=== PATIENT | female | born 1950 | race Caucasian/White ===

== ENCOUNTER 2016-11-24 14:11 | Emergency (ER) | payer MEDICARE, OTHER ==
--- NOTE | 2016-11-24 15:20 | ER Document Report ---
ED Syncope and Near Syncope - General Mode of Arrival: Medic Information source: Patient TRAVEL OUTSIDE OF THE U.[place]. IN LAST 30 DAYS: No - HPI Patient complains to provider of: Nearly fainting Context: Other - See above <SHAD KNIGHT - Last Filed: 11/24/16 16:01> <MANFRED BALLESTEROS - Last Filed: 11/24/16 22:31> - General Chief Complaint: Near Syncope Stated Complaint: POSSIBLE SYNCOPE Time Seen by Provider: 11/24/16 14:52 Notes: Patient is a 66 year old female who presents to the emergency department via EMS for near-syncope just prior to arrival. Patient states that she was with her working at a concession stand at a park when she went to the bathroom, vomited, had diarrhea, became hot, started seeing black and felt like she was going to pass out. Patient also complains of abdominal pain, nausea, and weakness. Patient denies chest pain, breathing difficulties, and trouble urinating. Patient reports she has not been sick recently, had any antibiotics, and that she only ate half a hot dog before the incident. (SHAD KNIGHT) - Related Data Allergies/Adverse Reactions: metoclopramide HCl [From Reglan] Allergy (Intermediate, Verified 08/04/16 08:09) nervousness, shaky Penicillins Allergy (Intermediate, Verified 08/04/16 08:09) rapid heartbeat acetaminophen [From Darvocet-N 100] Allergy (Mild, Verified 08/04/16 08:09) itching bacitracin [From Neosporin] Allergy (Mild, Verified 08/04/16 08:09) break out in little red bimps, itching bacitracin zinc [From Neosporin] Allergy (Mild, Verified 08/04/16 08:09) itching, break out wit little red bumps codeine [Codeine] Allergy (Mild, Verified 08/04/16 08:09) body jerking gramicidin D [From Neosporin] Allergy (Mild, Verified 08/04/16 08:09) itching neomycin sulfate [From Neosporin] Allergy (Mild, Verified 08/04/16 08:09) itching oxycodone HCl [From Percocet] Allergy (Mild, Verified 08/04/16 08:09) itching polymyxin B [From Neosporin] Allergy (Mild, Verified 08/04/16 08:09) itching polymyxin B sulfate [From Neosporin] Allergy (Mild, Verified 08/04/16 08:09) itching propoxyphene napsylate [From Darvocet-N 100] Allergy (Mild, Verified 08/04/16 08 :09) itching asprin Adverse Reaction (Intermediate, Uncoded 08/04/16 08:09) rapid pulse Past Medical History - General Information source: Patient - Social History Smoking Status: Unknown if Ever Smoked Family History: Reviewed & Not Pertinent - Past Medical History Cardiac Medical History: Reports: Hx Hypertension GI Medical History: Reports: Hx Gastroesophageal Reflux Disease, Hx Hiatal Hernia, Hx Ulcer Musculoskeltal Medical History: Reports Hx Arthritis Psychiatric Medical History: Reports: Hx Anxiety, Hx Depression Past Surgical History: Reports: Hx Cholecystectomy, Hx Hysterectomy, Hx Orthopedic Surgery, Hx Tubal Ligation - Immunizations Hx Diphtheria, Pertussis, Tetanus Vaccination: Yes <SHAD KNIGHT - Last Filed: 11/24/16 16:01> Review of Systems - Review of Systems Constitutional: See HPI, Weakness, Other - feeling hot EENT: See HPI, Blurred vision - seeing black Cardiovascular: Syncope - near. denies: Chest pain Respiratory: denies: Other - breathing difficulty Gastrointestinal: See HPI, Abdominal pain, Diarrhea, Nausea, Vomiting Genitourinary: denies: Other - Difficulty urinating Female Genitourinary: No symptoms reported Musculoskeletal: No symptoms reported Skin: No symptoms reported Hematologic/Lymphatic: No symptoms reported Neurological/Psychological: No symptoms reported -: Yes All other systems reviewed and negative <SHAD KNIGHT - Last Filed: 11/24/16 16:01> Physical Exam - Vital signs Interpretation: Normal - General General appearance: Alert In distress: None - HEENT Head: Normocephalic, Atraumatic Eyes: Normal Pupils: PERRL Nasal: Normal Mouth/Lips: Normal Mucous membranes: Dry Pharynx: Normal Neck: Normal - Respiratory Respiratory status: No respiratory distress Chest status: Nontender Breath sounds: Normal Chest palpation: Normal - Cardiovascular Rhythm: Regular Heart sounds: Normal auscultation Murmur: No - Abdominal Inspection: Normal Distension: No distension Bowel sounds: Normal Tenderness: Nontender Organomegaly: No organomegaly - Back Back: Normal, Nontender - Extremities General upper extremity: Normal inspection, Nontender, Normal color, Normal ROM , Normal temperature General lower extremity: Normal inspection, Nontender, Normal color, Normal ROM , Normal temperature, Normal weight bearing. No: Kenn's sign - Neurological Neuro grossly intact: Yes Cognition: Normal Orientation: AAOx4 [place] Coma Scale Eye Opening: Spontaneous [place] Coma Scale Verbal: Oriented [place] Coma Scale Motor: Obeys Commands [place] Coma Scale Total: 15 Speech: Normal Motor strength normal: LUE, RUE, LLE, RLE Sensory: Normal - Psychological Associated symptoms: Normal affect, Normal mood - Skin Skin Temperature: Warm Skin Moisture: Dry Skin Color: Normal <MANFRED BALLESTEROS - Last Filed: 11/24/16 22:31> - Vital signs Vitals: Temp Pulse Resp BP Pulse Ox 98.6 F 74 18 113/75 95 11/24/16 14:18 11/24/16 14:18 11/24/16 14:18 11/24/16 14:18 11/24/16 14:18 Course <SHAD KNIGHT - Last Filed: 11/24/16 16:01> - Laboratory Result Diagrams: 11/24/16 16:50 11/24/16 16:50 <MANFRED BALLESTEROS - Last Filed: 11/24/16 22:31> - Re-evaluation Re-evalutation: 11/24/16 Patient took a dose of lisinopril last night because she thought her blood pressure was high. Patient then went out in the hot sun all day and began developing diarrhea. Patient is improved after fluids and would like to go home. She is instructed to not take her blood pressure medications tonight or tomorrow morning. Patient is not orthostatic. Feels better. Blood work otherwise within normal limits. Stable for discharge. (MANFRED BALLESTEROS) - Vital Signs Vital signs: Temp Pulse Resp BP Pulse Ox 97.5 F 92 19 127/74 H 97 11/24/16 19:52 11/24/16 19:07 11/24/16 19:52 11/24/16 19:52 11/24/16 19:52 - Laboratory Laboratory results interpreted by me: 11/24/16 11/24/16 11/24/16 16:50 16:50 17:10 RDW 14.7 H Potassium 3.1 L Total Protein 5.8 L Albumin 3.1 L Stool for White Cells MANY H Discharge <SHAD KNIGHT - Last Filed: 11/24/16 16:01> <MANFRED BALLESTEROS - Last Filed: 11/24/16 22:31> - Discharge Clinical Impression: Near syncope, Hypokalemia Diarrhea Qualifiers: Diarrhea type: unspecified type Qualified Code(s): R19.7 - Diarrhea, unspecified Condition: Stable Disposition: HOME, SELF-CARE Instructions: Near Syncopal Episode ([facility]), Diarrhea, Nonspecific ([facility]), Orthostatic Hypotension ([facility]) Additional Instructions: Please do not take any blood pressure medication tonight or tomorrow morning. Please follow-up with her doctor on Saturday. Referrals: COLTON CERVANTES MD [Primary Care Provider] - 11/26/16 Scribe Attestation: 11/24/16 22:31 I personally performed the services described in the documentation, reviewed and edited the documentation which was dictated to the scribe in my presence, and it accurately records my words and actions. (MANFRED BALLESTEROS) Scribe Documentation - Scribe Written by Neo:: neo Nesbitt, 11/24/16, [id number] acting as scribe for :: Yvette <SHAD KNIGHT - Last Filed: 11/24/16 16:01>
[2016-11-24] MEDS ORDERED: NORMAL SALINE 1000 ML 1,000 ML IV ONE (15:42)
[2016-11-24 17:08] LABS: ABSOLUTE BASOPHILS # (AUTO) 0.1 10^3/uL (0.0-0.2); ABSOLUTE EOSINOPHILS # (AUTO) 0.1 10^3/uL (0.0-0.6); ABSOLUTE LYMPHOCYTES (AUTO) 1.6 10^3/uL (0.5-4.7); ABSOLUTE MONOCYTES (AUTO) 1.3 10^3/uL (0.1-1.4); ABSOLUTE NEUT (AUTO) 7.2 10^3/uL (1.7-8.2); BASOPHILS % (AUTO) 0.5 % (0-2); EOSINOPHILS % (AUTO) 0.5 % (0-6); HEMATOCRIT 36.8 % (36.0-47.0); HEMOGLOBIN 12.8 g/dL (12.0-15.5); HGB HCT DIFFERENCE 1.6; LYMPHOCYTES % (AUTO) 15.7 % (13-45); MEAN CORPUSCULAR HGB CONC 34.8 g/dL (32.0-36.0); MEAN CORPUSCULAR VOLUME 92 fl (80-97); MONOCYTES % (AUTO) 12.5 % (3-13); RED CELL DISTRIBUTION WIDTH 14.7 % (11.5-14.0); SEGMENTED NEUTROPHILS % (AUTO) 70.8 % (42-78); WHITE BLOOD COUNT 10.2 10^3/uL (4.0-10.5)
[2016-11-24 17:26] LABS: ALANINE AMINOTRANSFERASE 33 U/L (9-52); ALBUMIN 3.1 g/dL (3.5-5.0); ALKALINE PHOSPHATASE 78 U/L (38-126); ANION GAP 10 (5-19); ASPARTATE AMINO TRANSFERASE 26 U/L (14-36); BILIRUBIN,DIRECT 0.2 mg/dL (0.0-0.4); BILIRUBIN,TOTAL 0.7 mg/dL (0.2-1.3); BLOOD UREA NITROGEN 11 mg/dL (7-20); CALCIUM 9.4 mg/dL (8.4-10.2); CARBON DIOXIDE 24 mmol/L (22-30); CHLORIDE 106 mmol/L (98-107); CREATINE KINASE 35 U/L (30-135); CREATININE RESULT 0.73 mg/dL (0.52-1.25); GLUCOSE 103 mg/dL (75-110); POTASSIUM 3.1 mmol/L (3.6-5.0); SODIUM 139.8 mmol/L (137-145); TOTAL PROTEIN 5.8 g/dL (6.3-8.2)
[2016-11-24 17:39] LABS: CREATINE KINASE MB < 0.22 ng/mL (<4.55); TROPONIN I < 0.012 ng/mL
[2016-11-24 17:40] LABS: APPEARANCE,URINE CLEAR; BILIRUBIN,URINE NEGATIVE (NEGATIVE); GLUCOSE, URINE NEGATIVE (NEGATIVE); KETONES,URINE NEGATIVE (NEGATIVE); LEUKOCYTE ESTERASE,URINE NEGATIVE (NEGATIVE); NITRITE,URINE NEGATIVE (NEGATIVE); PROTEIN,URINE NEGATIVE (NEGATIVE); URINE SPECIFIC GRAVITY 1.006; UROBILINOGEN,URINE NEGATIVE mg/dL (<2.0)
[2016-11-24] MEDS ORDERED: POTASSI CL 20 MEQ/50 ML RIDER 50 ML IV SCH (17:58)
[2016-11-24] MEDS ORDERED: POTASSIUM CHLORIDE 10 MEQ TABLET.SA PO ONE (19:09)
[2016-11-24 20:02] VITALS: BP 127/74
== END 2016-11-24 20:00 | disposition home or self-care (01) ==
LOC: ER 14:11
DX: R55 Syncope and collapse (principal); E87.6 Hypokalemia; R19.7 Diarrhea, unspecified; R53.1 Weakness; H53.8 Other visual disturbances; I10 Essential (primary) hypertension; Z88.6 Allergy status to analgesic agent; Z88.0 Allergy status to penicillin; Z90.49 Acquired absence of other specified parts of digestive tract; Z90.710 Acquired absence of both cervix and uterus
CPT/HCPCS: 99284; 96360; 36415; 87045; 89055; 87205; 82553; 82550; 85025; 82272; 87077; 80053; 81001; 84484; 87493 ×2; J7030; A9270

== ENCOUNTER → 2017-05-09 | Outpatient (CLI) | payer MEDICARE, OTHER ==
[2017-05-09 07:51] LABS: ABSOLUTE LYMPHOCYTES (AUTO) 1.5 10^3/uL (0.5-4.7); ABSOLUTE MONOCYTES (AUTO) 0.7 10^3/uL (0.1-1.4); ABSOLUTE NEUT (AUTO) 6.3 10^3/uL (1.7-8.2); BASOPHILS % (AUTO) 0.2 % (0-2); EOSINOPHILS % (AUTO) 0.1 % (0-6); HEMATOCRIT 41.2 % (36.0-47.0); HGB HCT DIFFERENCE 0.8; LYMPHOCYTES % (AUTO) 17.3 % (13-45); MEAN CORPUSCULAR HEMOGLOBIN 31.3 pg (27.0-33.4); MEAN CORPUSCULAR VOLUME 92 fl (80-97); MONOCYTES % (AUTO) 8.4 % (3-13); RED BLOOD COUNT 4.46 10^6/uL (3.72-5.28); RED CELL DISTRIBUTION WIDTH 12.9 % (11.5-14.0); WHITE BLOOD COUNT 8.4 10^3/uL (4.0-10.5)
[2017-05-09 08:17] LABS: ALANINE AMINOTRANSFERASE 30 U/L (9-52); ALKALINE PHOSPHATASE 81 U/L (38-126); ANION GAP 10 (5-19); ASPARTATE AMINO TRANSFERASE 32 U/L (14-36); BILIRUBIN,DIRECT 0.4 mg/dL (0.0-0.4); BILIRUBIN,TOTAL 0.7 mg/dL (0.2-1.3); BLOOD UREA NITROGEN 13 mg/dL (7-20); CALCIUM 10.8 mg/dL (8.4-10.2); CARBON DIOXIDE 28 mmol/L (22-30); CHLORIDE 99 mmol/L (98-107); CHOLESTEROL 212.65 mg/dL (0-200); CREATININE RESULT 0.66 mg/dL (0.52-1.25); Direct HDL 77 mg/dL (>40); GLUCOSE 110 mg/dL (75-110); POTASSIUM 3.6 mmol/L (3.6-5.0); SODIUM 137.4 mmol/L (137-145); TOTAL PROTEIN 7.2 g/dL (6.3-8.2); TRIGLYCERIDES 87 mg/dL (<150)
[2017-05-09 08:28] LABS: DIRECT LDL 120 mg/dL (<100)
== END ==
LOC: LAB 07:36
PROVIDERS: ATTEND Internal Medicine
DX: I10 Essential (primary) hypertension (principal); E78.00 Pure hypercholesterolemia, unspecified; Z79.899 Other long term (current) drug therapy
CPT/HCPCS: 36415; 80053; 80061; 85025

== ENCOUNTER 2017-07-27 07:38 | Emergency (ER) | payer MEDICARE, OTHER ==
--- NOTE | 2017-07-27 08:34 | ER Document Report ---
ED Fall - General Chief Complaint: Fall Injury Stated Complaint: FALL,LEFT HIP PAIN Time Seen by Provider: 07/27/17 08:32 Mode of Arrival: Ambulatory Information source: Patient TRAVEL OUTSIDE OF THE [place] IN LAST 30 DAYS: No - HPI Occurred: Yesterday - Related data Allergies/Adverse Reactions: metoclopramide HCl [From Reglan] Allergy (Intermediate, Verified 07/27/17 08:05) nervousness, shaky Penicillins Allergy (Intermediate, Verified 07/27/17 08:05) rapid heartbeat acetaminophen [From Darvocet-N 100] Allergy (Mild, Verified 07/27/17 08:05) itching bacitracin [From Neosporin] Allergy (Mild, Verified 07/27/17 08:05) break out in little red bimps, itching bacitracin zinc [From Neosporin] Allergy (Mild, Verified 07/27/17 08:05) itching, break out wit little red bumps codeine [Codeine] Allergy (Mild, Verified 07/27/17 08:05) body jerking gramicidin D [From Neosporin] Allergy (Mild, Verified 07/27/17 08:05) itching neomycin sulfate [From Neosporin] Allergy (Mild, Verified 07/27/17 08:05) itching oxycodone HCl [From Percocet] Allergy (Mild, Verified 07/27/17 08:05) itching polymyxin B [From Neosporin] Allergy (Mild, Verified 07/27/17 08:05) itching polymyxin B sulfate [From Neosporin] Allergy (Mild, Verified 07/27/17 08:05) itching propoxyphene napsylate [From Darvocet-N 100] Allergy (Mild, Verified 07/27/17 08 :05) itching asprin Adverse Reaction (Intermediate, Uncoded 08/04/16 08:09) rapid pulse Past Medical History - General Information source: Patient - Social History Smoking Status: Unknown if Ever Smoked Cigarette use (# per day): No Chew tobacco use (# tins/day): No Frequency of alcohol use: None Drug Abuse: None Lives with: Family Family History: Reviewed & Not Pertinent - Past Medical History Cardiac Medical History: Reports: Hx Hypertension Denies: Hx Coronary Artery Disease, Hx Heart Attack Pulmonary Medical History: Denies: Hx Asthma, Hx Bronchitis, Hx COPD, Hx Pneumonia, Hx Tuberculosis Neurological Medical History: Denies: Hx Cerebrovascular Accident, Hx Seizures GI Medical History: Reports: Hx Gastroesophageal Reflux Disease, Hx Hiatal Hernia, Hx Ulcer Musculoskeltal Medical History: Reports Hx Arthritis Psychiatric Medical History: Reports: Hx Anxiety, Hx Depression Past Surgical History: Reports: Hx Cholecystectomy, Hx Hysterectomy, Hx Orthopedic Surgery, Hx Tubal Ligation. Denies: Hx Pacemaker - Immunizations Hx Diphtheria, Pertussis, Tetanus Vaccination: Yes Review of Systems - Review of Systems Constitutional: No symptoms reported EENT: No symptoms reported Cardiovascular: No symptoms reported Respiratory: No symptoms reported Gastrointestinal: No symptoms reported Female Genitourinary: Post menopausal Musculoskeletal: See HPI Skin: See HPI Neurological/Psychological: No symptoms reported Physical Exam - Vital signs Vitals: Temp Pulse Resp BP Pulse Ox 97.9 F 70 16 136/84 H 96 07/27/17 08:01 07/27/17 08:01 07/27/17 08:01 07/27/17 08:01 07/27/17 08:01 Interpretation: Normal. No: Tachycardic, Tachypneic - General General appearance: Appears well, Alert In distress: None - HEENT Head: Normocephalic Eyes: Normal Conjunctiva: Normal Ears: Normal Nasal: Normal Mouth/Lips: Normal Mucous membranes: Normal - Respiratory Respiratory status: No respiratory distress - Cardiovascular Rhythm: Regular - Abdominal Inspection: Normal Distension: No distension - Back Back: Normal - Extremities General upper extremity: No: Normal inspection - L. WRIST (SEE BELOW) General lower extremity: Normal inspection, Tender - L. GREATER TROCHANTER, Other - NO DEFORMITY Wrist: Laceration - 2 cm FLAP, OVER DISTAL ULNA, Other - NO BONY TENDERNESS - Neurological Neuro grossly intact: Yes Cognition: Normal Orientation: AAOx4 - Psychological Associated symptoms: Normal affect, Normal mood - Skin Skin Temperature: Warm Skin Moisture: Dry Skin Color: Normal Skin Turgor: Elastic Skin irregularity: Laceration - SEE ABOVE Course - Vital Signs Vital signs: Temp Pulse Resp BP Pulse Ox 97.9 F 70 16 136/84 H 96 07/27/17 08:01 07/27/17 08:01 07/27/17 08:01 07/27/17 08:01 07/27/17 08:01 - Diagnostic Test Radiology reviewed: Image reviewed, Reports reviewed Procedures - Laceration/Wound Repair Left Wrist Time completed: 09:55 Wound length (cm): 2 Wound's Depth, Shape: Flap Laceration pre-procedure: Shur-Clens applied Anesthetic type: Other - NONE Volume Anesthetic (mLs): 0 Wound explored: Clean Irrigated w/ Saline (mLs): 10 Wound Debrided: Minimal Wound Repaired With: Steri-strips - PERFORMED BY R.N. Post-procedure wound care: Sterile dressing applied Post-procedure NV exam normal: Yes Complications: No Discharge - Discharge Clinical Impression: Contusion, hip Qualifiers: Encounter type: initial encounter Laterality: left Qualified Code(s): S70.02XA - Contusion of left hip, initial encounter Laceration of wrist Qualifiers: Encounter type: initial encounter Laterality: left Qualified Code(s): S61.512A - Laceration without foreign body of left wrist, initial encounter Condition: Stable Disposition: HOME, SELF-CARE Instructions: Care of Steri-Strip Closure ([facility]), Ibuprofen (General) ([facility]), Contusion ([facility]) Additional Instructions: KEEP WOUND CLEAN AND DRY, ALLOW STERI-STRIPS TO STAY ON LONG THEY WILL. AVOID PAINFUL ACTIVITY. YOU MAY TAKE IBUPROFEN FOR PAIN CONTROL IF NEEDED. FOLLOW UP WITH YOUR PRIMARY CARE PROVIDER OR RETURN TO E.R. IF PROBLEMS. Referrals: COLTON CERVANTES MD [Primary Care Provider] - Follow up as needed
--- NOTE | 2017-07-27 09:52 | RADIOLOGY REPORT (SQ) ---
EXAM DESCRIPTION: CT LT LOWER EXTREMITY WITHOUT COMPLETED DATE/TIME: 07/27/2017 9:26 am REASON FOR STUDY: FALL, L. HIP PAIN, NO DEFORMITY, R/O OCCULT Fx COMPARISON: None. TECHNIQUE: CT scan of the left hip performed without intravenous or oral contrast. Images reviewed with soft tissue and bone windows. Reconstructed coronal and sagittal MPR images reviewed. All imag es stored on PACS. All CT scanners at this facility use dose modulation, iterative reconstruction, and/or weight based d osing when appropriate to reduce radiation dose to as low as reasonably achievable (ALARA). [facility]: Dose Right [facility]: CareDose [facility]: Dose Right [facility]: Teradose 4D [facility]: Divided RADIATION DOSE: CT Rad equipment meets quality standard of care and radiation dose reduction techniq ues were employed. CTDIvol: 44.5 mGy. DLP: 1350 mGy-cm. mGy. LIMITATIONS: None. FINDINGS: PELVIC BONES: Intact as assessed allowing for osteopenia. No evidence of fracture or susp icious bone lesion. VISUALIZED SPINE: No acute findings. SYMPTOMATIC HIP: Pronounced degenerative spurring. Moderate joint space narrowing. No evidence of o vert fracture or suspicious bone lesion. OPPOSITE HIP: Not imaged. PELVIC SOFT TISSUES: No significant findings. EXTRAPELVIC SOFT TISSUES: No significant findings. OTHER: No other significant finding. IMPRESSION: Left hip DJD. No fracture identified. TECHNICAL DOCUMENTATION: JOB ID: [id number] Quality ID # [id number]: Final reports with documentation of one or more dose reduction techniques (e.g., Au tomated exposure control, adjustment of the mA and/or kV according to patient size, use of iterative reconstruction technique) 2010 [employer]- All Rights Reserved
[2017-07-27 10:28] VITALS: BP 129/80
== END 2017-07-27 10:28 | disposition home or self-care (01) ==
LOC: ER 07:38
DX: S61.512A Laceration without foreign body of left wrist, initial encounter (principal); S70.02XA Contusion of left hip, initial encounter; W19.XXXA Unspecified fall, initial encounter; Y92.512 Supermarket, store or market as the place of occurrence of the external cause; I10 Essential (primary) hypertension; Z88.8 Allergy status to other drugs, medicaments and biological substances; Z88.0 Allergy status to penicillin; Z88.5 Allergy status to narcotic agent; Z88.3 Allergy status to other anti-infective agents
CPT/HCPCS: 99283

== ENCOUNTER 2019-05-09 09:09 | Emergency (ER) | payer MEDICARE, OTHER ==
[2019-05-09] MEDS ORDERED: ACETAMINOPHEN 325 MG TABLET PO ONE (11:05)
[2019-05-09 11:24] LABS: ABSOLUTE BASOPHILS # (AUTO) 0.1 10^3/uL (0.0-0.2); ABSOLUTE EOSINOPHILS # (AUTO) 0.5 10^3/uL (0.0-0.6); ABSOLUTE LYMPHOCYTES (AUTO) 1.7 10^3/uL (0.5-4.7); ABSOLUTE MONOCYTES (AUTO) 0.9 10^3/uL (0.1-1.4); ABSOLUTE NEUT (AUTO) 2.6 10^3/uL (1.7-8.2); BASOPHILS % (AUTO) 1.5 % (0-2); EOSINOPHILS % (AUTO) 8.1 % (0-6); HEMOGLOBIN 13.4 g/dL (12.0-15.5); LYMPHOCYTES % (AUTO) 29.8 % (13-45); MEAN CORPUSCULAR HEMOGLOBIN 30.8 pg (27.0-33.4); MEAN CORPUSCULAR HGB CONC 34.4 g/dL (32.0-36.0); MEAN CORPUSCULAR VOLUME 90 fl (80-97); MONOCYTES % (AUTO) 16.3 % (3-13); PLATELET COUNT 231 10^3/uL (150-450); RED BLOOD COUNT 4.36 10^6/uL (3.72-5.28); RED CELL DISTRIBUTION WIDTH 13.3 % (11.5-14.0); SEGMENTED NEUTROPHILS % (AUTO) 44.3 % (42-78); TOTAL CELLS COUNTED % (AUTO) 100 %; WHITE BLOOD COUNT 5.8 10^3/uL (4.0-10.5)
[2019-05-09 11:42] LABS: ANION GAP 6 (5-19); BLOOD UREA NITROGEN 12 mg/dL (7-20); CARBON DIOXIDE 30 mmol/L (22-30); CHLORIDE 102 mmol/L (98-107); GLUCOSE 90 mg/dL (75-110); POTASSIUM 3.8 mmol/L (3.6-5.0)
--- NOTE | 2019-05-09 12:00 | ER Document Report ---
ED Medical Screen (RME) - General Chief Complaint: Wound Infection Stated Complaint: ARM INJURY Time Seen by Provider: 05/09/19 11:58 Mode of Arrival: Ambulatory Information source: Patient Notes: 69-year-old female presents to ED for wound to the left forearm. She states she did at last Saturday. She states she has been to the hospital in [place] on Saturday and they gave her antibiotics on Saturday. She started on clindamycin 450 mg 3 times a day . She states the clindamycin is making her blood pressure very high she states this morning is 188/88. She has been nauseated due to the antibiotic. She states that the wound is continuing to run. And it is very painful.. I have greeted and performed a rapid initial assessment of this patient. A comprehensive ED assessment and evaluation of the patient, analysis of test results and completion of medical decision making process will be conducted by an additional ED providers. TRAVEL OUTSIDE OF THE [place] IN LAST 30 DAYS: No - Related Data Allergies/Adverse Reactions: metoclopramide HCl [From Reglan] Allergy (Intermediate, Verified 07/27/17 08:05) nervousness, shaky Penicillins Allergy (Intermediate, Verified 07/27/17 08:05) rapid heartbeat acetaminophen [From Darvocet-N 100] Allergy (Mild, Verified 07/27/17 08:05) itching bacitracin [From Neosporin] Allergy (Mild, Verified 07/27/17 08:05) break out in little red bimps, itching bacitracin zinc [From Neosporin] Allergy (Mild, Verified 07/27/17 08:05) itching, break out wit little red bumps codeine [Codeine] Allergy (Mild, Verified 07/27/17 08:05) body jerking gramicidin D [From Neosporin] Allergy (Mild, Verified 07/27/17 08:05) itching neomycin sulfate [From Neosporin] Allergy (Mild, Verified 07/27/17 08:05) itching oxycodone HCl [From Percocet] Allergy (Mild, Verified 07/27/17 08:05) itching polymyxin B [From Neosporin] Allergy (Mild, Verified 07/27/17 08:05) itching polymyxin B sulfate [From Neosporin] Allergy (Mild, Verified 07/27/17 08:05) itching propoxyphene napsylate [From Darvocet-N 100] Allergy (Mild, Verified 07/27/17 08:05) itching asprin Adverse Reaction (Intermediate, Uncoded 08/04/16 08:09) rapid pulse Past Medical History - Past Medical History Cardiac Medical History: Reports: Hx Hypertension Denies: Hx Coronary Artery Disease, Hx Heart Attack Pulmonary Medical History: Denies: Hx Asthma, Hx Bronchitis, Hx COPD, Hx Pneumonia, Hx Tuberculosis Neurological Medical History: Denies: Hx Cerebrovascular Accident, Hx Seizures Renal/ Medical History: Denies: Hx Peritoneal Dialysis GI Medical History: Reports: Hx Gastroesophageal Reflux Disease, Hx Hiatal Hernia, Hx Ulcer Musculoskeltal Medical History: Reports Hx Arthritis Psychiatric Medical History: Reports: Hx Anxiety, Hx Depression Past Surgical History: Reports: Hx Cholecystectomy, Hx Hysterectomy, Hx Orthopedic Surgery, Hx Tubal Ligation. Denies: Hx Pacemaker - Immunizations Hx Diphtheria, Pertussis, Tetanus Vaccination: Yes Physical Exam - Vital signs Vitals: Temp Pulse Resp BP Pulse Ox 98.6 F 63 20 186/72 H 96 05/09/19 09:18 05/09/19 09:18 05/09/19 09:18 05/09/19 09:18 05/09/19 09:18 Course - Vital Signs Vital signs: Temp Pulse Resp BP Pulse Ox 97.8 F 65 20 164/67 H 97 05/09/19 13:51 05/09/19 13:51 05/09/19 10:50 05/09/19 13:51 05/09/19 13:51 - Laboratory Result Diagrams: 05/09/19 11:10 05/09/19 11:10 Laboratory results interpreted by me: 05/09/19 11:10 [place] % (Auto) 16.3 H Eos % (Auto) 8.1 H Doctor's Discharge - Discharge Clinical Impression: Wound of left upper extremity Condition: Good Disposition: HOME, SELF-CARE Instructions: Soap Cleansing ([facility]) Additional Instructions: See your regular doctor in follow up. Please return here for any problems or any concerns. Stop the clindamycin.
--- NOTE | 2019-05-09 13:45 | ER Document Report ---
HPI - HPI Time Seen by Provider: 05/09/19 11:58 Onset: Last week Onset/Duration: Gradual Severity: Mild Pain Level: 5 Context: 69 year old female injured left arm at home 1 week ago today. A frame slid along her arm and caused a wound. She went to [facility] in [place] a few days ago and they started her on clindamycin which she feels is increasing her blood pressure. "I can't taste anything." No fever or chills. Using neosporin at home. No other complaints. Associated Symptoms: None Exacerbated by: Denies Relieved by: Denies - ROS ROS below otherwise negative: Yes Systems Reviewed and Negative: Yes All other systems reviewed and negative - CONSTITUTIONAL Constitutional: DENIES: Fever, Chills - EENT EENT: DENIES: Sore Throat - NEURO Neurology: DENIES: Headache - CARDIOVASCULAR Cardiovascular: DENIES: Chest pain - RESPIRATORY Respiratory: DENIES: Trouble Breathing - GASTROINTESTINAL Gastrointestinal: DENIES: Abdominal Pain - URINARY Urinary: DENIES: Dysuria - REPRODUCTIVE Reproductive: DENIES: : - DERM Skin Problems: Ulcer Notes: left forearm ulcer times 2 laterally. No surrounding redness or crusting or streaking. Tells me it did look bad the other day, but feels it looks better. Past Medical History - General Information source: Patient - Social History Smoking Status: Never Smoker Family History: Reviewed & Not Pertinent Patient has suicidal ideation: No Patient has homicidal ideation: No - Past Medical History Cardiac Medical History: Reports: Hx Hypertension Denies: Hx Coronary Artery Disease, Hx Heart Attack Pulmonary Medical History: Denies: Hx Asthma, Hx Bronchitis, Hx COPD, Hx Pneumonia, Hx Tuberculosis Neurological Medical History: Denies: Hx Cerebrovascular Accident, Hx Seizures Renal/ Medical History: Denies: Hx Peritoneal Dialysis GI Medical History: Reports: Hx Gastroesophageal Reflux Disease, Hx Hiatal Hernia, Hx Ulcer Musculoskeletal Medical History: Reports Hx Arthritis Psychiatric Medical History: Reports: Hx Anxiety, Hx Depression Past Surgical History: Reports: Hx Cholecystectomy, Hx Hysterectomy, Hx Orthopedic Surgery, Hx Tubal Ligation. Denies: Hx Pacemaker - Immunizations Hx Diphtheria, Pertussis, Tetanus Vaccination: Yes Vertical Provider Document - INFECTION CONTROL TRAVEL OUTSIDE OF THE [place] IN LAST 30 DAYS: No Course - Vital Signs Vital signs: Temp Pulse Resp BP Pulse Ox 98.3 F 72 20 188/80 H 95 05/09/19 10:50 05/09/19 10:50 05/09/19 10:50 05/09/19 10:50 05/09/19 10:50 - Laboratory Result Diagrams: 05/09/19 11:10 05/09/19 11:10 Laboratory results interpreted by me: 05/09/19 11:10 [place] % (Auto) 16.3 H Eos % (Auto) 8.1 H Discharge - Discharge Clinical Impression: Wound of left upper extremity Qualifiers: Encounter type: initial encounter Qualified Code(s): S41.102A - Unspecified open wound of left upper arm, initial encounter Condition: Good Disposition: HOME, SELF-CARE Instructions: Soap Cleansing ([facility]) Additional Instructions: See your regular doctor in follow up. Please return here for any problems or any concerns. Stop the clindamycin.
[2019-05-09 13:55] VITALS: BP 164/67
== END 2019-05-09 13:55 | disposition home or self-care (01) ==
LOC: ER 09:09
DX: L98.499 Non-pressure chronic ulcer of skin of other sites with unspecified severity (principal); R43.9 Unspecified disturbances of smell and taste; I10 Essential (primary) hypertension
CPT/HCPCS: 99283; 36415; 87070; 87205; 85025; 80048; A9270

== ENCOUNTER 2019-08-28 23:53 | Emergency (ER) | payer MEDICARE, OTHER ==
[2019-08-29 00:27] VITALS: BP 154/85
== END 2019-08-29 01:10 | disposition left against medical advice (07) ==
LOC: ER 23:53
DX: Z53.21 Procedure and treatment not carried out due to patient leaving prior to being seen by health care provider (principal)